=== PATIENT | male | born 1960 | race Two or more races ===

== ENCOUNTER 2017-03-10 11:20 | Outpatient (CLI) | payer BC ==
--- NOTE | 2017-03-10 12:24 | Diagnostic Imaging Report ---
Indication: Pain 3 views of the left knee were obtained. Findings: No acute fracture, malalignment, or joint effusion are identified. Joint space is relatively well-maintained. There is mild marginal spur formation involving the patella. Bone mineralization is within normal limits for age. Impression: Mild osteoarthritis
--- NOTE | 2017-03-10 12:24 | Diagnostic Imaging Report ---
Indications: hip pain Findings: Two views of the right hip were obtained. No acute fracture is demonstrated. Mild osteophyte formation involving the acetabulum noted. Joint space is relatively well-maintained. Alignment of the hip is within normal limits. Soft tissues are unremarkable. Impression: Mild osteoarthritis
--- NOTE | 2017-03-10 13:03 | Diagnostic Imaging Report ---
Indication: Pain 3 views of the right knee were obtained. Findings: No acute fracture, malalignment, or joint effusion are identified. Joint space is relatively well-maintained. Mild marginal spurring involving the patella noted. Bone mineralization is within normal limits for age. Impression: Mild osteoarthritis
--- NOTE | 2017-03-10 13:03 | Diagnostic Imaging Report ---
Indications: hip pain Findings: Two views of the left hip were obtained. No acute fracture is demonstrated. Alignment of the hip is within normal limits. Soft tissues are unremarkable. There is mild acetabular osteophyte formation. Impression: Mild osteoporosis of the left hip
== END 2017-03-11 12:50 | disposition home or self-care (01) ==
LOC: RAD 11:20
DX: M81.8 Other osteoporosis without current pathological fracture (principal); M16.11 Unilateral primary osteoarthritis, right hip; M17.0 Bilateral primary osteoarthritis of knee
CPT/HCPCS: 73502